=== PATIENT | female | born 1995 | race Caucasian/White ===

== ENCOUNTER 2021-11-03 19:24 | Emergency (ER) | payer OTHER ==
[~2021-11-03] VITALS: Ht 154.9 cm; Wt 87.1 kg
[2021-11-03 19:49] VITALS: BP 135/91
--- NOTE | 2021-11-04 05:15 | NUR ---
NOTIFIED PT OF POSITIVE COVID RESULT. INSTRUCTED PT TO CONTACT HER OB WHEN THEIR OFFICE OPENS FOR FURTHER MEDICAL DIRECTION
== END 2021-11-03 21:09 | disposition home or self-care (01) ==
LOC: ER 19:24
PROVIDERS: Student in an Organized Health Care Education/Training Program
DX: J02.9 Acute pharyngitis, unspecified (principal); Z20.822 Contact with and (suspected) exposure to COVID-19; M79.18 Myalgia, other site; Z88.0 Allergy status to penicillin